=== PATIENT | female | born 1950 | race Caucasian/White ===

== ENCOUNTER 2020-04-14 18:29 | Emergency (ER) | payer MEDICAID, MEDICARE ==
[~2020-04-14] VITALS: Ht 162.6 cm; Wt 57.2 kg
[~2020-04-14 18:29] MED LIST: FURO20TA4 PO; LEVO50TA8 PO; METO-357 PO; RIVA10TA PO
[2020-04-14 18:34] VITALS: BP 141/72
--- NOTE | 2020-04-14 18:39 | NUR ---
AT BEDSIDE FOR EVAL.
--- NOTE | 2020-04-14 18:48 | NUR ---
BOBBIN COIL WINDER AT BEDSIDE FOR XRAY.
[2020-04-14] MEDS ORDERED: LIDOCAINE /MPF 1% VIAL 5 ML VIAL ONE (18:58)
[2020-04-14] MEDS ORDERED: TDAP [DIPH/PERTUSSIS/TET] 0.5 ML VIAL IM ONE ×2 (19:00)
[2020-04-14] MEDS ORDERED: LIDOCAINE 1% INJ 50 ML MDV IJ ONE (19:00)
== END 2020-04-14 19:30 | disposition home or self-care (01) ==
LOC: ER 18:31
DX: S91.021A Laceration with foreign body, right ankle, initial encounter (principal); K21.9 Gastro-esophageal reflux disease without esophagitis; E03.9 Hypothyroidism, unspecified; E78.00 Pure hypercholesterolemia, unspecified; G89.29 Other chronic pain; Z86.73 Personal history of transient ischemic attack (TIA), and cerebral infarction without residual deficits; Z79.899 Other long term (current) drug therapy; W22.8XXA Striking against or struck by other objects, initial encounter; Y93.89 Activity, other specified; Y92.89 Other specified places as the place of occurrence of the external cause; Y99.8 Other external cause status
CPT/HCPCS: 12031; 73610; 99284; A6403; J3490; 90715

== ENCOUNTER 2022-03-25 17:26 | Emergency (ER) | payer SELFPAY ==
[~2022-03-25] VITALS: Ht 157.5 cm; Wt 49.9 kg
[2022-03-25] MEDS ORDERED: METO50TA16 PO (17:35)
[2022-03-25] MEDS ORDERED: PRED20TA PO (17:35)
[2022-03-25] MEDS ORDERED: METF-440 PO (17:35)
--- NOTE | 2022-03-25 17:56 | NUR ---
TO ER BED 2. C/O PALPITATION,BLOOD PRESSURE HAS BEEN HIGH X 7 DAYS. STATED THAT SHE ALSO HAS UPPER EPIGASTRIC PAIN. PT ATTACHED TO MONITOR, NO RESP DISTRESS NOTED. WARM BLANKET PROVIDED FOR COMFORT. AWAITING MD ORDERS.
--- NOTE | 2022-03-25 18:10 | NUR ---
DENNY BYNUM 18G. LABS DRAWN AND SENT.
--- NOTE | 2022-03-25 18:16 | NUR ---
COVID SWAB DONE AND SENT TO LAB
--- NOTE | 2022-03-25 18:18 | NUR ---
ULTRASOND AT BEDSIDE
[2022-03-25] MEDS ORDERED: KETOROLAC TROMETHAMINE 15 MG/ML VIAL ONE (18:27)
[2022-03-25] MEDS ORDERED: ONDANSETRON HCL/PF 4 MG/2 ML VIAL ONE (18:27)
[2022-03-25] MEDS ORDERED: ONDANSETRON HCL/PF 4 MG/2 ML VIAL IVP ONE (18:30)
[2022-03-25] MEDS ORDERED: KETOROLAC TROMETHAMINE INJ 30 MG/ML VIAL IV ONE (18:30)
[2022-03-25] MEDS ORDERED: IV NS 0.9% 1,000 ML BAG IV ONE (18:30)
[2022-03-25 18:56] LABS: ALBUMIN 3.7 g/dL (3.4-5.0); BILIRUBIN,DIRECT 0.3 mg/dL (0.0-0.2); CREATININE 1.1 mg/dL (0.6-1.3); POTASSIUM 3.4 mmol/L (3.5-5.1); TOTAL PROTEIN, SERUM 7.2 g/dL (6.4-8.2)
[2022-03-25] MEDS ORDERED: IV NS 0.9% 250 ML IV ONE (19:27)
[2022-03-25] MEDS ORDERED: IOHEXOL-300 100 ML VIAL IV ONE (19:27)
--- NOTE | 2022-03-25 19:30 | NUR ---
CAME BACK FROM CT DEPT.
--- NOTE | 2022-03-25 19:39 | NUR ---
RECEIVED REPORT FROM AD SERRANO. PATIENT CAME WITH CC OF PALPITATION AND HI BP FOR SEVERAL DAYS. PATIENT HAS PERIPHERAL LINE ON RIGHT AC G18. PATIENT HR 152BPM, SATS 97%, BP 146/103mmHg.
[2022-03-25 19:53] LABS: BASOPHILS % (AUTO) 0.2 % (0.0-2.0); EOSINOPHILS % (AUTO) 0.2 % (0.0-6.0); HEMATOCRIT 42 % (33-45); HEMOGLOBIN 14.1 g/dL (11.5-14.8); LYMPHOCYTES # (AUTO) 1.2 K/uL (0.8-4.8); LYMPHOCYTES % (AUTO) 11.3 % (20.0-44.0); MEAN CORPUSCULAR HGB CONC 34 g/dl (31.0-36.0); MEAN CORPUSCULAR VOLUME 97 fL (82-100); MONOCYTES # (AUTO) 0.4 K/uL (0.1-1.30); MONOCYTES % (AUTO) 3.3 % (2.0-12.0); NEUTROPHILS # (AUTO) 9.4 K/uL (1.8-8.9); PLATELET COUNT (AUTO) 263 K/uL (150-450); RED BLOOD CELL COUNT(AUTO) 4.36 MIL/uL (4.0-5.2)
[2022-03-25] MEDS ORDERED: FURO-144 PO (20:59)
--- NOTE | 2022-03-25 21:25 | NUR ---
IV CANNULA REMOVED
--- NOTE | 2022-03-25 21:34 | NUR ---
Patient discharged to home in stable condition. Written and verbal after care instructions given. Patient verbalizes understanding of instruction.
[2022-03-25 21:35] VITALS: BP 146/103
[2022-04-07] MEDS ORDERED: APIX5TAB PO (08:23)
== END 2022-03-25 21:30 | disposition home or self-care (01) ==
LOC: ER 17:42
DX: R10.13 Epigastric pain (principal); I50.9 Heart failure, unspecified; Z20.822 Contact with and (suspected) exposure to COVID-19; K21.9 Gastro-esophageal reflux disease without esophagitis; Z86.73 Personal history of transient ischemic attack (TIA), and cerebral infarction without residual deficits; E03.9 Hypothyroidism, unspecified; E78.00 Pure hypercholesterolemia, unspecified; E87.6 Hypokalemia; Z79.01 Long term (current) use of anticoagulants; Z79.890 Hormone replacement therapy; Z79.899 Other long term (current) drug therapy
CPT/HCPCS: 99291; 74177; 96374; 76705; 96361; 96375; 87426; 93005; 85025; 80048; 80076; 36415; 84484; 83880; J2405; J7030; J7050; Q9967; J1885; C9803

== ENCOUNTER 2022-03-31 16:55 | Emergency (ER) | payer SELFPAY ==
[~2022-03-31] VITALS: Ht 157.5 cm; Wt 49.9 kg
[~2022-03-31 16:55] MED LIST changes: +FURO-144 PO; +METF-440 PO; -METO-357 PO; +METO50TA16 PO; +PRED20TA PO; -RIVA10TA PO
[2022-03-31 18:52] LABS: CALCIUM, SERUM 9.2 mg/dL (8.5-10.1); CARBON DIOXIDE 37 mmol/L (21-32); CHLORIDE 90 mmol/L (98-107); CREATININE 1.4 mg/dL (0.6-1.3); GLUCOSE 174 mg/dL (74-106); POTASSIUM 3.4 mmol/L (3.5-5.1); SODIUM SERUM 135 mmol/L (136-145); UREA NITROGEN, BLOOD 25 mg/dL (7-18)
[2022-03-31] MEDS ORDERED: DILTIAZEM HCL 50 MG IV IV ONE (19:00)
[2022-03-31 19:05] LABS: THYROID STIMULATING HORMONE 5.872 uIU/mL (0.358-3.74)
[2022-03-31 19:06] LABS: MAGNESIUM 3.3 mg/dL (1.8-2.4)
--- NOTE | 2022-03-31 19:35 | NUR ---
RECEIVED PATIENT AAOX4. ABLE TO MAKE NEEDS KNOWN. CAME WITH CC OF PALPITATION. PATIENT IS ATTACHED TO MONITOR. WITH PERIPHERAL LINE ON RIGHT AC G18. VITALS CHECKED.
[2022-03-31] MEDS ORDERED: DILTIAZEM HCL 50 MG IV ONE (20:01)
--- NOTE | 2022-03-31 20:09 | NUR ---
CARDIZEM IV GIVEN IVP. VITALS BEING MONITORED Q 5MINS.
[2022-03-31 20:18] LABS: BASOPHILS % (AUTO) 0.1 % (0.0-2.0); EOSINOPHILS % (AUTO) 0.2 % (0.0-6.0); HEMATOCRIT 44 % (33-45); HEMOGLOBIN 14.6 g/dL (11.5-14.8); LYMPHOCYTES # (AUTO) 1.5 K/uL (0.8-4.8); MEAN CORPUSCULAR HGB CONC 33 g/dl (31.0-36.0); MEAN CORPUSCULAR VOLUME 96 fL (82-100); MONOCYTES # (AUTO) 0.6 K/uL (0.1-1.30); MONOCYTES % (AUTO) 4.1 % (2.0-12.0); NEUTROPHILS # (AUTO) 11.8 K/uL (1.8-8.9); NEUTROPHILS % (AUTO) 84.6 % (43.0-81.0); PLATELET COUNT (AUTO) 274 K/uL (150-450); RED BLOOD CELL COUNT(AUTO) 4.57 MIL/uL (4.0-5.2)
[2022-03-31] MEDS ORDERED: POTASSIUM CHLORIDE 20 MEQ TAB.PRT.SR PO ONE ×2 (20:30→21:27)
--- NOTE | 2022-03-31 21:02 | NUR ---
Byron martinez in [facility] - 03/31/22 at 2103 by RUSH IV CANNULA G20 INSERTED ON LEFT AC.
[2022-03-31] MEDS ORDERED: APIXABAN 2.5 MG TABLET PO SCH (21:30)
[2022-03-31] MEDS ORDERED: INSULIN REGULAR, HUMAN 100 UNIT/ML 3 ML VIAL SQ PRN (21:30)
[2022-03-31] MEDS ORDERED: APIXABAN 5 MG TABLET PO SCH (21:30)
[2022-03-31] MEDS ORDERED: ONDANSETRON HCL/PF 4 MG/2 ML VIAL IVP PRN (21:30)
[2022-03-31] MEDS ORDERED: ACETAMINOPHEN 325 MG TABLET PO PRN (21:30)
[2022-03-31] MEDS ORDERED: MORPHINE SULFATE INJ 2 MG/ML DISP.SYRIN IV PRN (21:30)
[2022-03-31] MEDS ORDERED: DILTIAZEM HCL 30 MG TABLET PO ONE (21:30)
[2022-03-31] MEDS ORDERED: DEXTROSE 50%-WATER 50 ML DISP.SYRIN IV PRN (21:30)
[2022-03-31] MEDS ORDERED: DILTIAZEM HCL 30 MG TABLET ONE (21:35)
[2022-03-31] MEDS ORDERED: BLOOD SUGAR DIAGNOSTIC 1 EACH STRIP IN SCH (22:00)
--- NOTE | 2022-03-31 22:05 | NUR ---
PATIENT SEEN BY DR NICOLE AT BEDSIDE. PATIENT REFUSED TO BE ADMITTED. SHE WOULD RATHER SEE HER PCP ON MONDAY. RISK AND BENEFIT EXPLAINED TO PATIENT BUT STILL REFUSED TO BE ADMITTED. PATIENT SIGNED AMA.
--- NOTE | 2022-03-31 22:15 | NUR ---
CARDIZEM 30MG PO ORDERED. CLARIFIED WITH DR FLORES WITH PATIENT'S LATEST VS. MD, STILL TO GIVE THE CARDIZEM ORAL.
--- NOTE | 2022-03-31 22:55 | NUR ---
Patient does not wish to proceed with medical care recommended by Dr. COREY CHANDRA. Patient given information related to possible complications, up to and including , which could occur as a result of leaving the hospital at this time. Patient verbalizes understanding of risks involved due to leaving against medical advice. Patient has signed AMA form.
--- NOTE | 2022-03-31 22:56 | NUR ---
IV removed. Catheter intact and site benign. Pressure and 4x4 applied to site. No bleeding noted.
[2022-03-31 23:25] VITALS: BP 119/74
[2022-04-01] MEDS ORDERED: LEVOTHYROXINE SODIUM 50 MCG TABLET PO SCH (07:30)
[2022-04-01] MEDS ORDERED: METOPROLOL TARTRATE 50 MG TABLET PO SCH (09:00)
[2022-04-01] MEDS ORDERED: FUROSEMIDE 40 MG TABLET PO SCH (09:00)
[2022-04-01] MEDS ORDERED: METFORMIN 500 MG TABLET PO SCH (09:00)
[2022-04-01] MEDS ORDERED: predniSONE 20 MG TABLET PO SCH (09:00)
[2022-04-07] MEDS ORDERED: APIX5TAB PO (08:23)
== END 2022-03-31 23:26 | disposition home or self-care (01) ==
LOC: ER 17:01
DX: I48.92 Unspecified atrial flutter (principal); I11.0 Hypertensive heart disease with heart failure; I50.9 Heart failure, unspecified; Z20.822 Contact with and (suspected) exposure to COVID-19; I48.91 Unspecified atrial fibrillation; E03.9 Hypothyroidism, unspecified; Z53.29 Procedure and treatment not carried out because of patient's decision for other reasons; R00.2 Palpitations; K21.9 Gastro-esophageal reflux disease without esophagitis; Z86.73 Personal history of transient ischemic attack (TIA), and cerebral infarction without residual deficits; E87.6 Hypokalemia; E78.00 Pure hypercholesterolemia, unspecified; Z79.890 Hormone replacement therapy; Z79.01 Long term (current) use of anticoagulants; Z79.899 Other long term (current) drug therapy
CPT/HCPCS: 99285; 96374; 71045; 87426; 93005 ×2; 85025; 80048; 87040 ×2; 83735; 36415; 84439; 84443; 84484; 85730; 83880; 84481; J3490; C9803

== ENCOUNTER 2022-04-04 14:28 | Inpatient (IN) | payer MEDICARE ==
[~2022-04-04] VITALS: Ht 157.5 cm; Wt 58.5 kg
[~2022-04-04 14:28] MED LIST changes: -FURO-144 PO
--- NOTE | 2022-04-04 15:36 | NUR ---
blood drawn and sent to lab
[2022-04-04 15:39] LABS: BASOPHILS % (AUTO) 0.4 % (0.0-2.0); EOSINOPHILS % (AUTO) 1.2 % (0.0-6.0); HEMATOCRIT 40 % (33-45); HEMOGLOBIN 13.2 g/dL (11.5-14.8); LYMPHOCYTES % (AUTO) 18.7 % (20.0-44.0); MEAN CORPUSCULAR HGB CONC 33 g/dl (31.0-36.0); MEAN CORPUSCULAR VOLUME 96 fL (82-100); MONOCYTES # (AUTO) 0.7 K/uL (0.1-1.30); MONOCYTES % (AUTO) 6.7 % (2.0-12.0); NEUTROPHILS # (AUTO) 7.9 K/uL (1.8-8.9); PLATELET COUNT (AUTO) 220 K/uL (150-450); RED BLOOD CELL COUNT(AUTO) 4.22 MIL/uL (4.0-5.2); WHITE BLOOD COUNT (AUTO) 10.8 K/uL (4.3-11.0)
--- NOTE | 2022-04-04 15:47 | NUR ---
covid swab collected and sent to lab
--- NOTE | 2022-04-04 15:58 | NUR ---
TECH AT BEDSIDE FOR EKG
[2022-04-04 16:19] LABS: ALANINE AMINOTRANSFERASE 95 U/L (12-78); ALBUMIN 3.5 g/dL (3.4-5.0); ALKALINE PHOSPHATASE 101 U/L (46-116); ASPARTATE AMINOTRANSFERASE 36 U/L (15-37); BILIRUBIN,DIRECT 0.2 mg/dL (0.0-0.2); BILIRUBIN,TOTAL 0.4 mg/dL (0.2-1.0); CALCIUM, SERUM 8.8 mg/dL (8.5-10.1); CARBON DIOXIDE 36 mmol/L (21-32); CHLORIDE 98 mmol/L (98-107); GLUCOSE 109 mg/dL (74-106); POTASSIUM 3.3 mmol/L (3.5-5.1); SODIUM SERUM 139 mmol/L (136-145); TOTAL PROTEIN, SERUM 6.8 g/dL (6.4-8.2)
[2022-04-04] MEDS ORDERED: MELA5TAB PO (16:35)
[2022-04-04] MEDS ORDERED: IBUP-1953 PO (16:35)
[2022-04-04] MEDS ORDERED: SUMA100T PO (16:35)
[2022-04-04 16:37] LABS: UREA NITROGEN, BLOOD 31 mg/dL (7-18)
--- NOTE | 2022-04-04 17:56 | NUR ---
DR. REEDER SPEAKING WITH DR. BRUNNER.
[2022-04-04] MEDS ORDERED: SUMATRIPTAN SUCCINATE 100 MG TABLET PO PRN (18:30)
[2022-04-04] MEDS ORDERED: *INSULIN REGULAR(HUMULIN R)HUM 100 UNIT/ML VIAL SQ PRN (18:30)
[2022-04-04] MEDS ORDERED: Z GUARD REMEDY 4 OZ OINT TP PRN (18:30)
[2022-04-04] MEDS ORDERED: POTASSIUM CHLORIDE 10 MEQ TABLET.SA PO ONE (18:30)
[2022-04-04] MEDS ORDERED: INSULIN REGULAR, HUMAN 100 UNIT/ML 3 ML VIAL SQ PRN (18:30)
[2022-04-04] MEDS ORDERED: ACETAMINOPHEN 325 MG TABLET PO PRN (18:30)
[2022-04-04] MEDS ORDERED: MAG HYDROX/AL HYDROX/SIMETH 30 ML UDC PO PRN (18:30)
[2022-04-04] MEDS ORDERED: ZOLPIDEM TARTRATE 5 MG TABLET PO PRN (18:30)
[2022-04-04] MEDS ORDERED: ONDANSETRON HCL/PF 4 MG/2 ML VIAL IVP PRN (18:30)
[2022-04-04] MEDS ORDERED: IV NS 0.9% 1,000 ML IV PRN (18:30)
[2022-04-04] MEDS ORDERED: MAGNESIUM HYDROXIDE 30 ML UDC PO PRN (18:30)
[2022-04-04] MEDS ORDERED: DEXTROSE 50%-WATER 50 ML DISP.SYRIN IV PRN (18:30)
--- NOTE | 2022-04-04 19:31 | NUR ---
rm 328-2
[2022-04-04] MEDS ORDERED: ADENOSINE 6 MG/2 ML VIAL ONE ×2 (20:07→20:20)
--- NOTE | 2022-04-04 20:41 | NUR ---
BED ASSIGNMENT CHANGED TO 113-1
[2022-04-04] MEDS ORDERED: AMIODARONE 150 MG in IV D5W 100 ML IV ONE (21:00)
[2022-04-04] MEDS ORDERED: AMIODARONE 150 MG/3 ML VIAL IV ONE ×2 (21:00)
[2022-04-04] MEDS ORDERED: AMIODARONE 450 MG in IV D5W 250 ML IV ONE (21:00)
[2022-04-04] MEDS ORDERED: ADENOSINE 6 MG/2 ML VIAL IVP ONE (21:00)
--- NOTE | 2022-04-04 21:03 | NUR ---
CALLED FOR REPORT. NURSE NOT AVAILABLE
[2022-04-04] MEDS: AMIODARONE 450 MG in IV D5W 241 ML IV PRN (21:11)
--- NOTE | 2022-04-04 21:12 | NUR ---
AMIODARONE DRIP INITIATED AT 1MG/MIN FOR FIRST 6HRS PER PROTOCOL.
--- NOTE | 2022-04-04 21:21 | NUR ---
report given to willard
--- NOTE | 2022-04-04 21:35 | NUR ---
RN NOTE 2135 RECEIVED 72 Y/O PT FROM ER TRANSFERRED VIA GURNEY ACCOMPANIED BY ER STAFF, PT IS A/O X4 VERBALLY RESPONSIVE, ON RA TOLERATING WELL, WITH DX OF SYNCOPE, PT AMBULATES WITH ASSISTANCE, ADMISSION CARE RENDERED, BODY CHECKED DONE NOTED WITH L LOWER LEG BRUISES PT REFUSED TO TAKE ANY PICTURE SHE SAID "I DON'T WANT ANYBODY TO KNOW ABOUT THIS, I GOT IT FROM MY WORK". EXPLAINED OUR HOSPITAL POLICIES AND PROTOCOL UPON ADMISSION, PT STILL REFUSED. DENIES SOB AND CHEST PAIN AT THIS TIME, IV ACCESS ON RFA #20G RUNNING AMIODARONE AT 1MG, PT ABLE TO TURN AND REPOSITION, SAFETY MEASURES IN PLACED, BED IN LOWEST AND LOCKED POSITION, CALL LIGHT WITHIN REACH, WILL CONT TO MONITOR.
--- NOTE | 2022-04-04 21:43 | NUR ---
PT TRANSPORTED TO ROOM 113-1 ON CARDIAC PER ACLS. AMIODARONE INFUSING AT 1MG/MIN. HANDOFF TO FRANCESCA AD ARRIETA.
[2022-04-04] MEDS ORDERED: Medication Not On Formulary EA (Melatonin 10 MG) PO SCH (22:00)
[2022-04-04] MEDS ORDERED: POTASSIUM CHLORIDE 20 MEQ TAB.PRT.SR PO ONE (22:00)
[2022-04-04] MEDS: BLOOD SUGAR DIAGNOSTIC 1 EACH STRIP VI SCH (22:15)
[2022-04-05] VITALS: BP 105/86
[2022-04-05] MEDS: AMIODARONE 450 MG in IV D5W 241 ML IV PRN (03:21)
--- NOTE | 2022-04-05 03:21 | NUR ---
RN NOTE AMIODARONE DRIP TITRATED TO 0.5 MG AT THIS TIME, PT TOLERATING WELL. WILL CONT TO MONITOR.
[2022-04-05 04:00] VITALS: BP 112/73
[2022-04-05 06:35] LABS: BASOPHILS # (AUTO) 0.1 K/uL (0.0-0.2); BASOPHILS % (AUTO) 0.8 % (0.0-2.0); EOSINOPHILS % (AUTO) 0.8 % (0.0-6.0); HEMATOCRIT 39 % (33-45); HEMOGLOBIN 12.8 g/dL (11.5-14.8); LYMPHOCYTES # (AUTO) 2.3 K/uL (0.8-4.8); LYMPHOCYTES % (AUTO) 22.8 % (20.0-44.0); MEAN CORPUSCULAR HGB CONC 32 g/dl (31.0-36.0); MEAN CORPUSCULAR VOLUME 96 fL (82-100); MONOCYTES # (AUTO) 0.5 K/uL (0.1-1.30); MONOCYTES % (AUTO) 5.4 % (2.0-12.0); NEUTROPHILS # (AUTO) 7.1 K/uL (1.8-8.9); NEUTROPHILS % (AUTO) 70.2 % (43.0-81.0); PLATELET COUNT (AUTO) 210 K/uL (150-450); RED BLOOD CELL COUNT(AUTO) 4.09 MIL/uL (4.0-5.2); WHITE BLOOD COUNT (AUTO) 10.1 K/uL (4.3-11.0)
--- NOTE | 2022-04-05 06:46 | NUR ---
FRANCESCA RN CLOSING NOTES PATIENT ON BED AWAKE, A/O X 4. ABLE TO MAKE NEEDS KNOWN, ON RA TOLERATING WELL, SATING AT 100%. RESPIRATORY EVEN AND UNLABORED, NO SOB NOTED, AFEBRILE, NO S/S OF DISTRESS NOTED. IV ACCESS AT RAC #20G INTACT AND PATENT RUNNING AMIODARONE DRIP AT 0.5 MG, WITH PUREWICK IN PLACED, ALL DUE MEDS GIVEN, KEPT DRY AND CLEAN, ALL SAFETY PRECAUTION PROVIDED, BED IN LOWEST AND LOCKED POSITION. ALL NEEDS ATTENDED, CALL LIGHT WITHIN REACH. WILL ENDORSE TO AM SHIFT NURSE FOR CONTINUITY OF CARE.
[2022-04-05 07:08] LABS: ALANINE AMINOTRANSFERASE 75 U/L (12-78); ALBUMIN 2.9 g/dL (3.4-5.0); ALKALINE PHOSPHATASE 85 U/L (46-116); ASPARTATE AMINOTRANSFERASE 30 U/L (15-37); BILIRUBIN,TOTAL 0.6 mg/dL (0.2-1.0); CALCIUM, SERUM 8.2 mg/dL (8.5-10.1); CARBON DIOXIDE 35 mmol/L (21-32); CHLORIDE 99 mmol/L (98-107); GLUCOSE 96 mg/dL (74-106); MAGNESIUM 2.1 mg/dL (1.8-2.4); PHOSPHORUS 3.3 mg/dL (2.5-4.9); SODIUM SERUM 138 mmol/L (136-145); TOTAL PROTEIN, SERUM 5.8 g/dL (6.4-8.2); UREA NITROGEN, BLOOD 27 mg/dL (7-18)
[2022-04-05 07:12] LABS: CHOLESTEROL 190 mg/dL (<200); HDL CHOLESTEROL 49 mg/dL (40-60); LDL 112 mg/dL (0-99); TRIGLYCERIDES 196 mg/dL (30-150)
[2022-04-05] MEDS ORDERED: LEVOTHYROXINE SODIUM 50 MCG TABLET PO SCH (07:30)
--- NOTE | 2022-04-05 07:30 | NUR ---
FRANCESCA RN AM NOTES PATIENT IN BED AWAKE, A/O X 4. ABLE TO MAKE NEEDS KNOWN, ON RA TOLERATING WELL, SATING AT 100%. RESPIRATORY UNLABORED, NO SOB NOTED, SINUS RHYTHM ON MONITOR, DENIES CHEST PAIN/DISCOMFORT, IV ACCESS AT RAC #20G INTACT AND PATENT RUNNING AMIODARONE DRIP AT 0.5 MG, [END TIME 2100]. WITH PUREWICK BUT REMOVED Y PATIENT, CARDIAC DIET, BRP/AMBULATORY WITH ASSIST, KEPT DRY AND CLEAN, ALL SAFETY PRECAUTION PROVIDED, BED IN LOWEST AND LOCKED POSITION. ALL NEEDS ATTENDED, CALL LIGHT WITHIN REACH. WILLCOTINUE TO MONITOR.
[2022-04-05 08:00] VITALS: BP 107/71
[2022-04-05] MEDS: POTASSIUM CHLORIDE 20 MEQ TAB.PRT.SR PO SCH ×3 (08:06→09:49)
[2022-04-05] MEDS: BLOOD SUGAR DIAGNOSTIC 1 EACH STRIP VI SCH ×3 (08:07→17:14)
[2022-04-05] MEDS: METOPROLOL TARTRATE 50 MG TABLET PO SCH ×2 (08:14→17:00)
[2022-04-05] MEDS: APIXABAN 5 MG TABLET PO SCH ×2 (08:18→17:25)
--- NOTE | 2022-04-05 09:30 | NUR ---
RN NOTES DUE MEDS GIVEN
[2022-04-05] MEDS ORDERED: HYOSCYAMINE SULFATE 0.125 MG TAB.SUBL SL PRN (11:30)
[2022-04-05] MEDS ORDERED: NA PHOS,M-B/NA PHOS,DI-BA 1 EA ENEMA RC PRN (11:30)
[2022-04-05 12:00] VITALS: BP_SYST 89; BP_SYST 92; BP_DIAS 60; BP_DIAS 72
--- NOTE | 2022-04-05 15:35 | NUR ---
RN NOTES PATIENT GIVEN FLEETS ENEMA, HAD 3 BM.
[2022-04-05 16:00] VITALS: BP 92/71
--- NOTE | 2022-04-05 18:55 | NUR ---
RN NOTES ALL NEEDS MET AT HIS TIME. PATIENT RESTING COMFORTABLY. NOT IN ANY DISTRESS. STABLE. WILL ENDORSE TO NEXT SHIFT FOR ISABELA.
[2022-04-05 20:00] VITALS: BP 113/71
--- NOTE | 2022-04-05 20:15 | NUR ---
RN NOTES, PATIENT STATED THAT SHE WANTS TO LEAVE, INFORMED PATIENT THAT THERE IS NO DISCHARGE ORDER AND IF SHE WANTS TO LEAVE WILL BE AGAINS MEDICAL ADVICE, EDUCATION PROVIDED ABOUT IMPORTANCE TO BE COMPLIANT WITH DR ORDERS AND WAIT TO PROPERLY DISCHARGE HOME, SHE REFUSED SEVERAL TIMES AND SHE STATED THAT SHE IS OK, SHE WILL BE OK AND DOES NOT NEED DR ORDER TO GO HOME, INFORMED KETAN MAGALLON MANAGER LAND AND PER HIM SHE CAN LEAVE AGAINST MEDICAL ADVICE.
--- NOTE | 2022-04-05 20:25 | NUR ---
PATIENT WAS SCOLDED TO THE LOBBY VIA WHEEL CHAIR, ACCOMPANIED BY RESPIRATORY THERAPY MANAGER AND SECURITY, SHE IS GOING TO DRIVE OWN CAR PARKED EMERGENCY PARKING, SHE IS LEAVING AGAINST MEDICAL ADVICE, EDUCATION PROVIDED ABOUT IMPORTANCE TO BE COMPLIANT WITH DR ORDERS AND PROPERLY DISCHARGE HOME, PLAN TO DC TOMORROW, SHE REFUSED SEVERAL TIMES, AND STATED SHE DOES NOT NEED DR ORDER, SHE CAN DISCHARGE HERSELF, THAT THIS IS NOT THE FIRST TIME SHE LEAVES AMA, TELEMONITOR DC, IV LINE DC, AT ROOM AIR NO DISTRESS NOTED UPON DEPART, BUT EXPLAIN RISKS AND BENEFITS, SHE IS S/P AMIODARONE DRIP, DC DURING THE DAY.
--- NOTE | 2022-04-05 20:25 | NUR ---
PATIENT TAKE ALL HER BELONGINGS WITH HER AND SIGN BELONGINGS FORM.
[2022-04-06 09:07] LABS: *SPE A/G RATIO 1.2 (0.7-1.7); *SPE ALPHA-1-GLOBULIN 0.2 g/dL (0.0-0.4); *SPE ALPHA-2-GLOBULIN 0.8 g/dL (0.4-1.0); *SPE M-SPIKE Not Observed g/dL (Not Observed)
[2022-04-07] MEDS ORDERED: APIX5TAB PO (08:23)
== END 2022-04-05 21:05 | disposition left against medical advice (07) | DRG 291 ==
LOC: ER 14:31 → TELE 19:31 → TELE1 20:41 → TELE-TD 22:34
PROVIDERS: ADMIT Nurse Practitioner Acute Care; ATTEND Nurse Practitioner Acute Care
DX: I11.0 Hypertensive heart disease with heart failure (principal); I50.33 Acute on chronic diastolic (congestive) heart failure; I48.92 Unspecified atrial flutter; D68.59 Other primary thrombophilia; I47.1 Supraventricular tachycardia; E11.9 Type 2 diabetes mellitus without complications; I48.91 Unspecified atrial fibrillation; Z86.73 Personal history of transient ischemic attack (TIA), and cerebral infarction without residual deficits; K21.9 Gastro-esophageal reflux disease without esophagitis; G89.29 Other chronic pain; E03.9 Hypothyroidism, unspecified; Z79.84 Long term (current) use of oral hypoglycemic drugs; Z79.899 Other long term (current) drug therapy; R79.89 Other specified abnormal findings of blood chemistry; E87.6 Hypokalemia; E78.00 Pure hypercholesterolemia, unspecified; Z91.81 History of falling; Z53.29 Procedure and treatment not carried out because of patient's decision for other reasons
CPT/HCPCS: 36415; 70450-TC; 71045-TC; 80048-TC; 80053-TC; 80061-TC; 80076-TC; 82962-TC; 83735-TC; 83880; 84100-TC; 84155; 84165; 84484-TC; 85025-TC; 86704; 86803; 87081-TC; 87340; 87806; 93307-TC; C9803; G0378; J0153; J0282; J1815; J7030; J7060

== ENCOUNTER 2024-02-17 15:31 | Inpatient (IN) | payer MEDICARE, OTHER ==
[~2024-02-17] VITALS: Ht 162.6 cm; Wt 59.9 kg
[~2024-02-17 15:31] MED LIST changes: +APIX5TAB PO; -FURO20TA4 PO; +IBUP-1953 PO; +MELA5TAB PO; -PRED20TA PO; +SUMA100T PO
[2024-02-17 16:08] LABS: BASOPHILS % (AUTO) 0.2 % (0.0-2.0); EOSINOPHILS % (AUTO) 0.2 % (0.0-6.0); HEMATOCRIT 34 % (33-45); HEMOGLOBIN 11.4 g/dL (11.5-14.8); LYMPHOCYTES # (AUTO) 0.8 K/uL (0.8-4.8); LYMPHOCYTES % (AUTO) 7.2 % (20.0-44.0); MEAN CORPUSCULAR HEMOGLOBIN 31 PG (26.0-33.0); MEAN CORPUSCULAR HGB CONC 33 g/dl (31.0-36.0); MEAN CORPUSCULAR VOLUME 93 fL (82-100); MONOCYTES # (AUTO) 0.9 K/uL (0.1-1.30); MONOCYTES % (AUTO) 8.1 % (2.0-12.0); NEUTROPHILS # (AUTO) 9.4 K/uL (1.8-8.9); NEUTROPHILS % (AUTO) 84.3 % (43.0-81.0); PLATELET COUNT (AUTO) 404 K/uL (150-450); RED BLOOD CELL COUNT(AUTO) 3.68 MIL/uL (4.0-5.2); RED CELL DISTRIBUTION WIDTH 13.5 % (11.5-15.0); WHITE BLOOD COUNT (AUTO) 11.2 K/uL (4.3-11.0)
[2024-02-17] MEDS: KETAMINE HCL(200MG/20ML) 10 MG/ML VIAL IV ONE (16:22)
[2024-02-17] MEDS: IV NS 0.9% 1,000 ML BAG IV ONE (16:22)
[2024-02-17 16:23] LABS: INR 1.07 (0.91-1.10); PARTIAL THROMBOPLASTIN TIME 30.2 SEC (24.3-34.3); PROTHROMBIN TIME 11.3 SECS (9.2-11.1)
[2024-02-17 16:25] LABS: CREATINE KINASE, TOTAL 637 U/L (26-192)
[2024-02-17 16:27] LABS: ALANINE AMINOTRANSFERASE 25 U/L (12-78); ALKALINE PHOSPHATASE 88 U/L (46-116); ASPARTATE AMINOTRANSFERASE 42 U/L (15-37); BILIRUBIN,DIRECT 0.3 mg/dL (0.0-0.2); BILIRUBIN,TOTAL 0.9 mg/dL (0.2-1.0); CALCIUM, SERUM 9.6 mg/dL (8.5-10.1); CARBON DIOXIDE 18 mmol/L (21-32); CHLORIDE 102 mmol/L (98-107); CREATININE 0.8 mg/dL (0.6-1.3); GLUCOSE 125 mg/dL (74-106); POTASSIUM 3.3 mmol/L (3.5-5.1); SODIUM SERUM 140 mmol/L (136-145); TOTAL PROTEIN, SERUM 7.2 g/dL (6.4-8.2); UREA NITROGEN, BLOOD 19 mg/dL (7-18)
[2024-02-17 16:32] LABS: MAGNESIUM 1.8 mg/dL (1.8-2.4)
[2024-02-17 16:34] LABS: THYROID STIMULATING HORMONE 1.73 uIU/mL (0.358-3.74)
[2024-02-17] MEDS ORDERED: MORPHINE SULFATE INJ 4 MG/ML DISP.SYRIN ONE ×2 (17:29→18:48)
[2024-02-17] MEDS: MORPHINE SULFATE INJ 2 MG/ML DISP.SYRIN IV ONE ×2 (17:33→18:51)
[2024-02-17] MEDS ORDERED: Z GUARD REMEDY 4 OZ OINT TP PRN (21:30)
[2024-02-17] MEDS ORDERED: DEXTROSE 50%-WATER 50 ML DISP.SYRIN IV PRN (21:30)
[2024-02-17] MEDS: MORPHINE SULFATE INJ 2 MG/ML DISP.SYRIN IV PRN (23:00)
[2024-02-17 23:15] VITALS: BP 149/115; TEMP 98.2; O2SAT 97
[2024-02-17] MEDS: BLOOD SUGAR DIAGNOSTIC 1 EACH STRIP IN SCH (23:21)
[2024-02-17] MEDS: POTASSIUM CHLORIDE 20 MEQ POWDER PACKET PO SCH (23:21)
[2024-02-17] MEDS: METOPROLOL TARTRATE 50 MG TABLET PO SCH (23:22)
[2024-02-17] MEDS: IV NS 0.9% 1,000 ML IV PRN (23:40)
[2024-02-18] VITALS: BP 135/84; TEMP 98; O2SAT 97
[2024-02-18 04:00] VITALS: BP 128/77; TEMP 97.7; O2SAT 95
[2024-02-18 07:50] LABS: BASOPHILS % (AUTO) 0.3 % (0.0-2.0); EOSINOPHILS % (AUTO) 0.1 % (0.0-6.0); HEMATOCRIT 33 % (33-45); HEMOGLOBIN 11.1 g/dL (11.5-14.8); LYMPHOCYTES # (AUTO) 0.8 K/uL (0.8-4.8); LYMPHOCYTES % (AUTO) 7.6 % (20.0-44.0); MEAN CORPUSCULAR HEMOGLOBIN 32 PG (26.0-33.0); MEAN CORPUSCULAR HGB CONC 34 g/dl (31.0-36.0); MEAN CORPUSCULAR VOLUME 94 fL (82-100); MONOCYTES # (AUTO) 0.9 K/uL (0.1-1.30); MONOCYTES % (AUTO) 8.4 % (2.0-12.0); NEUTROPHILS # (AUTO) 8.7 K/uL (1.8-8.9); NEUTROPHILS % (AUTO) 83.6 % (43.0-81.0); PLATELET COUNT (AUTO) 368 K/uL (150-450); RED BLOOD CELL COUNT(AUTO) 3.52 MIL/uL (4.0-5.2); RED CELL DISTRIBUTION WIDTH 13.2 % (11.5-15.0); WHITE BLOOD COUNT (AUTO) 10.4 K/uL (4.3-11.0)
[2024-02-18] MEDS: LEVOTHYROXINE SODIUM 50 MCG TABLET PO SCH (07:52)
[2024-02-18 08:00] VITALS: BP 121/89; TEMP 98.8; O2SAT 96
[2024-02-18 08:19] LABS: CALCIUM, SERUM 9.1 mg/dL (8.5-10.1); CARBON DIOXIDE 19 mmol/L (21-32); CHLORIDE 105 mmol/L (98-107); CREATININE 0.7 mg/dL (0.6-1.3); GLUCOSE 124 mg/dL (74-106); MAGNESIUM 1.9 mg/dL (1.8-2.4); PHOSPHORUS 2.6 mg/dL (2.5-4.9); POTASSIUM 3.4 mmol/L (3.5-5.1); SODIUM SERUM 139 mmol/L (136-145); UREA NITROGEN, BLOOD 17 mg/dL (7-18)
[2024-02-18 08:34] LABS: CREATINE KINASE, TOTAL 311 U/L (26-192)
[2024-02-18] MEDS: MAG HYDROX/AL HYDROX/SIMETH 30 ML UDC PO PRN (09:14)
[2024-02-18] MEDS: APIXABAN 5 MG TABLET PO SCH (09:15)
[2024-02-18] MEDS: PANTOPRAZOLE 40 MG VIAL IV SCH (09:15)
[2024-02-18] MEDS: AMIODARONE 150 MG in IV D5W 100 ML IV ONE (09:32)
[2024-02-18] MEDS: AMIODARONE 450 MG in IV D5W 241 ML IV PRN (10:11)
[2024-02-18 12:00] VITALS: BP 110/63; TEMP 98.3; O2SAT 94
[2024-02-18] MEDS: INSULIN REGULAR, HUMAN 100 UNIT/ML 3 ML VIAL SQ PRN (12:14)
[2024-02-18 16:00] VITALS: BP 106/72; TEMP 97.7; O2SAT 95
[2024-02-18 20:00] VITALS: BP 128/83; TEMP 98.1; O2SAT 97
[2024-02-18] MEDS: ONDANSETRON HCL/PF 4 MG/2 ML VIAL IVP PRN (21:28)
[2024-02-19] VITALS: BP 119/74; TEMP 99.5; O2SAT 95
[2024-02-19] MEDS: MORPHINE SULFATE INJ 2 MG/ML DISP.SYRIN IVP ONE (01:14)
[2024-02-19 04:00] VITALS: BP 122/78; TEMP 98.2; O2SAT 97
[2024-02-19 07:24] LABS: BASOPHILS % (AUTO) 0.2 % (0.0-2.0); EOSINOPHILS % (AUTO) 0.3 % (0.0-6.0); HEMATOCRIT 29 % (33-45); HEMOGLOBIN 9.8 g/dL (11.5-14.8); LYMPHOCYTES # (AUTO) 0.9 K/uL (0.8-4.8); LYMPHOCYTES % (AUTO) 8.1 % (20.0-44.0); MEAN CORPUSCULAR HEMOGLOBIN 32 PG (26.0-33.0); MEAN CORPUSCULAR HGB CONC 34 g/dl (31.0-36.0); MEAN CORPUSCULAR VOLUME 93 fL (82-100); MONOCYTES % (AUTO) 8.6 % (2.0-12.0); NEUTROPHILS # (AUTO) 9.4 K/uL (1.8-8.9); NEUTROPHILS % (AUTO) 82.8 % (43.0-81.0); PLATELET COUNT (AUTO) 373 K/uL (150-450); RED BLOOD CELL COUNT(AUTO) 3.08 MIL/uL (4.0-5.2); RED CELL DISTRIBUTION WIDTH 13.6 % (11.5-15.0); WHITE BLOOD COUNT (AUTO) 11.3 K/uL (4.3-11.0)
[2024-02-19 07:28] LABS: CALCIUM, SERUM 8.8 mg/dL (8.5-10.1); CARBON DIOXIDE 20 mmol/L (21-32); CHLORIDE 104 mmol/L (98-107); CREATININE 0.6 mg/dL (0.6-1.3); GLUCOSE 145 mg/dL (74-106); POTASSIUM 3.4 mmol/L (3.5-5.1); SODIUM SERUM 134 mmol/L (136-145); UREA NITROGEN, BLOOD 14 mg/dL (7-18)
[2024-02-19 07:35] LABS: CREATINE KINASE, TOTAL 105 U/L (26-192)
[2024-02-19 08:00] VITALS: BP 118/82; TEMP 98.7; O2SAT 97
[2024-02-19] MEDS: SUMATRIPTAN SUCCINATE 100 MG TABLET PO PRN (08:44)
[2024-02-19] MEDS: POTASSIUM CHLORIDE 20 MEQ TAB.PRT.SR PO ONE (08:51)
[2024-02-19] MEDS: PANTOPRAZOLE 40 MG TABLET.DR PO SCH (08:51)
[2024-02-19] MEDS: HYDROCODONE/APAP 5/325MG TABLET PO PRN (11:31)
[2024-02-19 12:00] VITALS: BP 124/75; TEMP 98.9; O2SAT 97
[2024-02-19] MEDS: AMIODARONE HCL 200 MG TABLET PO SCH (14:50)
[2024-02-19 16:00] VITALS: BP 128/65; TEMP 98.7; O2SAT 97
[2024-02-19] MEDS: GLUCERNA SHAKE 237 ML CAN PO SCH (16:21)
[2024-02-19 20:00] VITALS: BP 125/80; TEMP 98.4; O2SAT 97
[2024-02-20] VITALS: BP 125/80; TEMP 98.4; O2SAT 97
[2024-02-20] MEDS: TEMAZEPAM 7.5 MG CAPSULE PO ONE (00:44)
[2024-02-20 04:00] VITALS: BP 115/90; TEMP 98.1; O2SAT 97
[2024-02-20 07:15] LABS: BASOPHILS % (AUTO) 0.4 % (0.0-2.0); EOSINOPHILS # (AUTO) 0.1 K/uL (0.0-0.7); EOSINOPHILS % (AUTO) 0.7 % (0.0-6.0); HEMATOCRIT 28 % (33-45); HEMOGLOBIN 9.7 g/dL (11.5-14.8); LYMPHOCYTES % (AUTO) 10.6 % (20.0-44.0); MEAN CORPUSCULAR HEMOGLOBIN 32 PG (26.0-33.0); MEAN CORPUSCULAR HGB CONC 34 g/dl (31.0-36.0); MEAN CORPUSCULAR VOLUME 94 fL (82-100); MONOCYTES # (AUTO) 0.8 K/uL (0.1-1.30); MONOCYTES % (AUTO) 7.9 % (2.0-12.0); NEUTROPHILS # (AUTO) 7.7 K/uL (1.8-8.9); NEUTROPHILS % (AUTO) 80.4 % (43.0-81.0); PLATELET COUNT (AUTO) 375 K/uL (150-450); RED BLOOD CELL COUNT(AUTO) 3.03 MIL/uL (4.0-5.2); RED CELL DISTRIBUTION WIDTH 13.7 % (11.5-15.0); WHITE BLOOD COUNT (AUTO) 9.5 K/uL (4.3-11.0)
[2024-02-20 07:41] LABS: CALCIUM, SERUM 8.9 mg/dL (8.5-10.1); CARBON DIOXIDE 17 mmol/L (21-32); CHLORIDE 106 mmol/L (98-107); CREATININE 0.6 mg/dL (0.6-1.3); GLUCOSE 112 mg/dL (74-106); POTASSIUM 3.6 mmol/L (3.5-5.1); SODIUM SERUM 135 mmol/L (136-145); UREA NITROGEN, BLOOD 14 mg/dL (7-18)
[2024-02-20 07:44] LABS: CREATINE KINASE, TOTAL 56 U/L (26-192)
[2024-02-20 08:00] VITALS: BP 117/74; TEMP 97; O2SAT 97
[2024-02-20 12:00] VITALS: BP 123/76; TEMP 97.2; O2SAT 96
[2024-02-20] MEDS: METOPROLOL TARTRATE 50 MG TABLET PO SCH (13:43)
[2024-02-20 16:00] VITALS: BP 102/80; TEMP 98.1; O2SAT 96
[2024-02-20 20:00] VITALS: BP 137/80; TEMP 97; O2SAT 96
[2024-02-21] VITALS (8 sets, daily range): BP systolic 106–136; BP diastolic 73–94; TEMP 97–98.8; O2SAT 96–100
[2024-02-21] MEDS: ALBUTEROL FS 2.5 MG/0.5 ML VIAL.NEB NEB PRN (04:24)
[2024-02-21] MEDS: TEMAZEPAM 7.5 MG CAPSULE PO PRN (05:07)
[2024-02-21 07:33] LABS: BASOPHILS % (AUTO) 0.4 % (0.0-2.0); EOSINOPHILS # (AUTO) 0.1 K/uL (0.0-0.7); EOSINOPHILS % (AUTO) 0.8 % (0.0-6.0); HEMATOCRIT 28 % (33-45); HEMOGLOBIN 9.4 g/dL (11.5-14.8); LYMPHOCYTES % (AUTO) 10.2 % (20.0-44.0); MEAN CORPUSCULAR HEMOGLOBIN 32 PG (26.0-33.0); MEAN CORPUSCULAR HGB CONC 34 g/dl (31.0-36.0); MEAN CORPUSCULAR VOLUME 94 fL (82-100); MONOCYTES # (AUTO) 0.9 K/uL (0.1-1.30); MONOCYTES % (AUTO) 9.1 % (2.0-12.0); NEUTROPHILS # (AUTO) 8.2 K/uL (1.8-8.9); NEUTROPHILS % (AUTO) 79.5 % (43.0-81.0); PLATELET COUNT (AUTO) 387 K/uL (150-450); RED BLOOD CELL COUNT(AUTO) 2.94 MIL/uL (4.0-5.2); RED CELL DISTRIBUTION WIDTH 13.5 % (11.5-15.0); WHITE BLOOD COUNT (AUTO) 10.3 K/uL (4.3-11.0)
[2024-02-21 08:29] LABS: ALANINE AMINOTRANSFERASE 18 U/L (12-78); ALKALINE PHOSPHATASE 79 U/L (46-116); ASPARTATE AMINOTRANSFERASE 21 U/L (15-37); BILIRUBIN,DIRECT 0.1 mg/dL (0.0-0.2); BILIRUBIN,TOTAL 0.3 mg/dL (0.2-1.0); CALCIUM, SERUM 8.7 mg/dL (8.5-10.1); CARBON DIOXIDE 19 mmol/L (21-32); CHLORIDE 103 mmol/L (98-107); CREATININE 0.7 mg/dL (0.6-1.3); GLUCOSE 105 mg/dL (74-106); POTASSIUM 3.7 mmol/L (3.5-5.1); SODIUM SERUM 133 mmol/L (136-145); TOTAL PROTEIN, SERUM 5.6 g/dL (6.4-8.2); UREA NITROGEN, BLOOD 11 mg/dL (7-18)
[2024-02-21] MEDS: POTASSIUM CHLORIDE 20 MEQ TAB.PRT.SR PO SCH (08:34)
[2024-02-21 09:20] LABS: ALBUMIN 1.2 g/dL (3.4-5.0)
[2024-02-21] MEDS ORDERED: clonazePAM 0.5 MG TABLET PO PRN (14:30)
[2024-02-21] MEDS: MAGNESIUM HYDROXIDE 30 ML UDC PO PRN (17:21)
[2024-02-21] MEDS: BISACODYL SUPP (10 MG) 10 MG/SUPP.RECT SUPP.RECT RC ONE (19:50)
[2024-02-21] MEDS: HYDROCODONE/APAP 10/325MG TABLET PO PRN (22:13)
[2024-02-22 04:00] VITALS: BP 138/75; TEMP 96.8; O2SAT 99
[2024-02-22 06:50] LABS: BASOPHILS % (AUTO) 0.5 % (0.0-2.0); EOSINOPHILS # (AUTO) 0.1 K/uL (0.0-0.7); EOSINOPHILS % (AUTO) 1.3 % (0.0-6.0); HEMATOCRIT 28 % (33-45); HEMOGLOBIN 9.6 g/dL (11.5-14.8); LYMPHOCYTES % (AUTO) 12.6 % (20.0-44.0); MEAN CORPUSCULAR HEMOGLOBIN 32 PG (26.0-33.0); MEAN CORPUSCULAR HGB CONC 34 g/dl (31.0-36.0); MEAN CORPUSCULAR VOLUME 94 fL (82-100); MONOCYTES # (AUTO) 0.9 K/uL (0.1-1.30); MONOCYTES % (AUTO) 10.6 % (2.0-12.0); NEUTROPHILS # (AUTO) 6.1 K/uL (1.8-8.9); PLATELET COUNT (AUTO) 409 K/uL (150-450); RED BLOOD CELL COUNT(AUTO) 3.02 MIL/uL (4.0-5.2); RED CELL DISTRIBUTION WIDTH 13.5 % (11.5-15.0); WHITE BLOOD COUNT (AUTO) 8.1 K/uL (4.3-11.0)
[2024-02-22 07:18] LABS: CALCIUM, SERUM 9.3 mg/dL (8.5-10.1); CARBON DIOXIDE 18 mmol/L (21-32); CHLORIDE 106 mmol/L (98-107); CREATININE 0.5 mg/dL (0.6-1.3); GLUCOSE 115 mg/dL (74-106); POTASSIUM 3.5 mmol/L (3.5-5.1); SODIUM SERUM 136 mmol/L (136-145); UREA NITROGEN, BLOOD 11 mg/dL (7-18)
[2024-02-22 08:00] VITALS: BP 113/64; TEMP 97.7; O2SAT 100
[2024-02-22] MEDS ORDERED: HYDR-3980 PO (11:21)
[2024-02-22] MEDS ORDERED: CLON0.5T4 PO (11:21)
[2024-02-22] MEDS ORDERED: APIX5TAB PO (11:21)
[2024-02-22] MEDS ORDERED: METO50TA16 PO (11:21)
[2024-02-22] MEDS ORDERED: ALBU2.5V13 NEB (11:21)
[2024-02-22] MEDS ORDERED: NUT.237L45 PO (11:21)
[2024-02-22] MEDS ORDERED: AMIO200T7 PO (11:21)
[2024-02-22] MEDS ORDERED: POTA20TA83 PO (11:21)
[2024-02-22 16:00] VITALS: BP 104/61; TEMP 98.2; O2SAT 100
[2024-02-23] VITALS: BP 112/70; TEMP 97.7; O2SAT 100
[2024-02-23] MEDS: ACETAMINOPHEN 325 MG TABLET PO PRN (02:00)
[2024-02-23 07:05] LABS: BASOPHILS % (AUTO) 0.4 % (0.0-2.0); EOSINOPHILS # (AUTO) 0.1 K/uL (0.0-0.7); EOSINOPHILS % (AUTO) 0.9 % (0.0-6.0); HEMATOCRIT 26 % (33-45); LYMPHOCYTES # (AUTO) 1.1 K/uL (0.8-4.8); LYMPHOCYTES % (AUTO) 13.7 % (20.0-44.0); MEAN CORPUSCULAR HEMOGLOBIN 32 PG (26.0-33.0); MEAN CORPUSCULAR HGB CONC 34 g/dl (31.0-36.0); MEAN CORPUSCULAR VOLUME 93 fL (82-100); MONOCYTES # (AUTO) 0.9 K/uL (0.1-1.30); MONOCYTES % (AUTO) 10.9 % (2.0-12.0); NEUTROPHILS % (AUTO) 74.1 % (43.0-81.0); PLATELET COUNT (AUTO) 415 K/uL (150-450); RED BLOOD CELL COUNT(AUTO) 2.83 MIL/uL (4.0-5.2); RED CELL DISTRIBUTION WIDTH 13.5 % (11.5-15.0); WHITE BLOOD COUNT (AUTO) 8.1 K/uL (4.3-11.0)
[2024-02-23 07:24] LABS: CALCIUM, SERUM 9.1 mg/dL (8.5-10.1); CARBON DIOXIDE 24 mmol/L (21-32); CHLORIDE 104 mmol/L (98-107); CREATININE 0.5 mg/dL (0.6-1.3); GLUCOSE 105 mg/dL (74-106); POTASSIUM 3.7 mmol/L (3.5-5.1); SODIUM SERUM 136 mmol/L (136-145); UREA NITROGEN, BLOOD 10 mg/dL (7-18)
[2024-02-23 08:00] VITALS: BP 120/76; TEMP 96.5; O2SAT 96
[2024-02-23] MEDS: THERAHONEY GEL 1.5 OZ TUBE TP SCH (11:53)
[2024-02-23 16:00] VITALS: BP 128/96; TEMP 97.1; O2SAT 97
[2024-02-23] MEDS: METOPROLOL TARTRATE 50 MG TABLET PO SCH (17:34)
[2024-02-23 21:30] VITALS: O2SAT 98
[2024-02-24 04:00] VITALS: BP 91/51; TEMP 98.6; O2SAT 100
[2024-02-24 04:14] VITALS: BP 95/51; TEMP 98.6; O2SAT 100
[2024-02-24 07:11] VITALS: BP 75/51; TEMP 96.6; O2SAT 98
[2024-02-24 08:00] VITALS: BP 115/83; TEMP 97.9; O2SAT 100
[2024-02-24 08:41] VITALS: BP 115/83
== END 2024-02-24 12:19 | disposition still patient (30) | DRG 73 ==
LOC: ER 15:40 → MED 20:40 → UNDOADMIN 20:40 → MEDSG1 22:04 → TELE-TD 22:17 → MEDSG1 02-20 10:07 → TELE1 02-20 13:23 → MEDSG1 02-21 20:42
PROVIDERS: ATTEND Nurse Practitioner Acute Care
DX: G90.8 Other disorders of autonomic nervous system (principal); E43 Unspecified severe protein-calorie malnutrition; N17.0 Acute kidney failure with tubular necrosis; I21.A1 Myocardial infarction type 2; I47.10 Supraventricular tachycardia, unspecified; R65.10 Systemic inflammatory response syndrome (SIRS) of non-infectious origin without acute organ dysfunction; E86.0 Dehydration; I48.0 Paroxysmal atrial fibrillation; W19.XXXA Unspecified fall, initial encounter; Y92.9 Unspecified place or not applicable; Z86.73 Personal history of transient ischemic attack (TIA), and cerebral infarction without residual deficits; I25.2 Old myocardial infarction; K21.9 Gastro-esophageal reflux disease without esophagitis; I50.9 Heart failure, unspecified; I11.0 Hypertensive heart disease with heart failure; G89.29 Other chronic pain; E03.9 Hypothyroidism, unspecified; E78.00 Pure hypercholesterolemia, unspecified; Z79.01 Long term (current) use of anticoagulants; Z79.890 Hormone replacement therapy; Z79.899 Other long term (current) drug therapy; S00.03XA Contusion of scalp, initial encounter; F41.9 Anxiety disorder, unspecified; E78.5 Hyperlipidemia, unspecified; E11.9 Type 2 diabetes mellitus without complications; E87.6 Hypokalemia; D64.9 Anemia, unspecified; E88.09 Other disorders of plasma-protein metabolism, not elsewhere classified; Z96.641 Presence of right artificial hip joint; F39 Unspecified mood [affective] disorder; G47.00 Insomnia, unspecified
CPT/HCPCS: 36415; 70450-TC; 71045-TC; 72125-TC; 72192-TC; 73070-TC; 73521; 73560-TC; 80048-TC; 80076-TC; 82550-TC; 82553; 82962-TC; 83735-TC; 83880; 84100-TC; 84439-TC; 84443-TC; 84484-TC; 85025-TC; 85730-TC; 93307-TC; 93880-TC; 94760-TC; 94799-TC; 97110-TC; 97530-TC; A4223; A6253; A6403; G0378; J0282; J1815; J2270; J2405; J2470; J3490; J7030; J7050; J7060

== ENCOUNTER 2024-11-23 16:28 | Emergency (ER) | payer MEDICAID, MEDICARE, OTHER ==
[~2024-11-23] VITALS: Ht 157.5 cm; Wt 47.6 kg
[~2024-11-23 16:28] MED LIST changes: +ALBU2.5V13 NEB; +AMIO200T7 PO; +CLON0.5T4 PO; +HYDR-3980 PO; -MELA5TAB PO; -METF-440 PO; +NUT.237L45 PO; +POTA20TA83 PO
[2024-11-23] MEDS: KETOROLAC TROMETHAMINE 15 MG/ML VIAL IV ONE (17:00)
[2024-11-23] MEDS ORDERED: KETOROLAC TROMETHAMINE 15 MG/ML VIAL ONE (17:03)
[2024-11-23 17:25] LABS: BASOPHILS % (AUTO) 0.6 % (0.0-2.0); EOSINOPHILS # (AUTO) 0.2 K/uL (0.0-0.7); EOSINOPHILS % (AUTO) 2.6 % (0.0-6.0); HEMATOCRIT 34 % (33-45); HEMOGLOBIN 11.3 g/dL (11.5-14.8); LYMPHOCYTES # (AUTO) 1.8 K/uL (0.8-4.8); LYMPHOCYTES % (AUTO) 25.2 % (20.0-44.0); MEAN CORPUSCULAR HEMOGLOBIN 31 PG (26.0-33.0); MEAN CORPUSCULAR HGB CONC 34 g/dl (31.0-36.0); MEAN CORPUSCULAR VOLUME 91 fL (82-100); MONOCYTES # (AUTO) 0.5 K/uL (0.1-1.30); NEUTROPHILS # (AUTO) 4.7 K/uL (1.8-8.9); NEUTROPHILS % (AUTO) 64.6 % (43.0-81.0); PLATELET COUNT (AUTO) 215 K/uL (150-450); RED BLOOD CELL COUNT(AUTO) 3.67 MIL/uL (4.0-5.2); RED CELL DISTRIBUTION WIDTH 14.5 % (11.5-15.0); WHITE BLOOD COUNT (AUTO) 7.3 K/uL (4.3-11.0)
[2024-11-23 17:33] LABS: CALCIUM, SERUM 9.3 mg/dL (8.5-10.1); CARBON DIOXIDE 25 mmol/L (21-32); CHLORIDE 106 mmol/L (98-107); CREATININE 0.7 mg/dL (0.6-1.3); GLUCOSE 91 mg/dL (74-106); POTASSIUM 4.2 mmol/L (3.5-5.1); SODIUM SERUM 140 mmol/L (136-145); UREA NITROGEN, BLOOD 17 mg/dL (7-18)
[2024-11-23 17:44] LABS: ALANINE AMINOTRANSFERASE 20 U/L (12-78); ALBUMIN 3.7 g/dL (3.4-5.0); ALKALINE PHOSPHATASE 145 U/L (46-116); ASPARTATE AMINOTRANSFERASE 23 U/L (15-37); BILIRUBIN,DIRECT 0.1 mg/dL (0.0-0.2); BILIRUBIN,TOTAL 0.2 mg/dL (0.2-1.0); LIPASE 33 U/L (16-77)
[2024-11-23 18:30] LABS: APPEARANCE,URINE CLEAR (CLEAR); BILIRUBIN,URINE NEGATIVE (NEGATIVE); BLOOD, URINE NEGATIVE Ery/uL (NEGATIVE); COLOR,URINE YELLOW (YELLOW); KETONES,URINE TRACE mg/dL (NEGATIVE); LEUKOCYTE ESTERASE ,URINE NEGATIVE (NEGATIVE); NITRITE, URINE POSITIVE (NEGATIVE); PROTEIN,URINE TRACE mg/dl (NEGATIVE); UGLUCOSE NEGATIVE (NEGATIVE); UROBILINOGEN,URINE 0.2 EU/dL (0.2)
[2024-11-23 19:21] LABS: RBC,URINE 0-2 /HPF (0-2)
[2024-11-23 19:22] LABS: ADD URINE CULTURE YES; BACTERIA,URINE Many /HPF (None Seen); SQUAMOUS EPITHELIAL CELL,UR 0-2 /HPF (None Seen)
[2024-11-23] MEDS ORDERED: CIPR-262 PO (19:25)
[2024-11-23] MEDS ORDERED: CIPROFLOXACIN HCL 500 MG TABLET ONE (19:32)
[2024-11-23] MEDS: CIPROFLOXACIN HCL 250 MG TABLET PO ONE (19:36)
[2024-11-23 19:52] VITALS: BP 130/81; TEMP 97.8; O2SAT 99
== END 2024-11-23 19:52 | disposition home or self-care (01) ==
LOC: ER 16:37
DX: N39.0 Urinary tract infection, site not specified (principal); E03.9 Hypothyroidism, unspecified; E11.9 Type 2 diabetes mellitus without complications; E78.00 Pure hypercholesterolemia, unspecified; G89.29 Other chronic pain; I10 Essential (primary) hypertension; I48.91 Unspecified atrial fibrillation; K21.9 Gastro-esophageal reflux disease without esophagitis; Z79.01 Long term (current) use of anticoagulants; Z79.899 Other long term (current) drug therapy; Z86.73 Personal history of transient ischemic attack (TIA), and cerebral infarction without residual deficits; Z60.2 Problems related to living alone
CPT/HCPCS: 99285; 74176; 96374; 93005; 85025; 80048; 87086; 83690; 80076; 81001; 36415; 84484; J1885

== ENCOUNTER 2024-12-26 16:19 | Inpatient (IN) | payer MEDICARE, OTHER ==
[~2024-12-26] VITALS: Ht 154.9 cm; Wt 51.7 kg
[~2024-12-26 16:19] MED LIST changes: +CIPR-262 PO
[2024-12-26] MEDS ORDERED: ONDANSETRON HCL/PF 4 MG/2 ML VIAL ONE (16:57)
[2024-12-26] MEDS ORDERED: MORPHINE SULFATE INJ 4 MG/ML DISP.SYRIN ONE (16:57)
[2024-12-26] MEDS: IV NS 0.9% 1,000 ML BAG IV ONE (17:17)
[2024-12-26 17:18] LABS: BASOPHILS % (AUTO) 0.6 % (0.0-2.0); EOSINOPHILS # (AUTO) 0.2 K/uL (0.0-0.7); EOSINOPHILS % (AUTO) 2.6 % (0.0-6.0); HEMATOCRIT 36 % (33-45); HEMOGLOBIN 12.1 g/dL (11.5-14.8); LYMPHOCYTES # (AUTO) 1.8 K/uL (0.8-4.8); LYMPHOCYTES % (AUTO) 23.6 % (20.0-44.0); MEAN CORPUSCULAR HEMOGLOBIN 31 PG (26.0-33.0); MEAN CORPUSCULAR HGB CONC 34 g/dl (31.0-36.0); MEAN CORPUSCULAR VOLUME 92 fL (82-100); MONOCYTES # (AUTO) 0.5 K/uL (0.1-1.30); NEUTROPHILS # (AUTO) 5.1 K/uL (1.8-8.9); NEUTROPHILS % (AUTO) 66.2 % (43.0-81.0); PLATELET COUNT (AUTO) 229 K/uL (150-450); RED BLOOD CELL COUNT(AUTO) 3.95 MIL/uL (4.0-5.2); RED CELL DISTRIBUTION WIDTH 14.7 % (11.5-15.0); WHITE BLOOD COUNT (AUTO) 7.7 K/uL (4.3-11.0)
[2024-12-26 17:19] LABS: APPEARANCE,URINE CLEAR (CLEAR); BILIRUBIN,URINE NEGATIVE (NEGATIVE); BLOOD, URINE NEGATIVE Ery/uL (NEGATIVE); COLOR,URINE YELLOW (YELLOW); KETONES,URINE NEGATIVE (NEGATIVE); LEUKOCYTE ESTERASE ,URINE TRACE (NEGATIVE); NITRITE, URINE NEGATIVE (NEGATIVE); PH,URINE 5.5 (5.0-8.0); PROTEIN,URINE NEGATIVE (NEGATIVE); UGLUCOSE NEGATIVE (NEGATIVE); UROBILINOGEN,URINE 0.2 EU/dL (0.2)
[2024-12-26] MEDS: ONDANSETRON HCL/PF 4 MG/2 ML VIAL IVP ONE (17:23)
[2024-12-26] MEDS: MORPHINE SULFATE INJ 2 MG/ML DISP.SYRIN IV ONE (17:24)
[2024-12-26 17:39] LABS: BILIRUBIN,DIRECT 0.1 mg/dL (0.0-0.2); BILIRUBIN,TOTAL 0.5 mg/dL (0.2-1.0); CALCIUM, SERUM 9.1 mg/dL (8.5-10.1); CREATININE 0.9 mg/dL (0.6-1.3); TOTAL PROTEIN, SERUM 7.7 g/dL (6.4-8.2)
[2024-12-26 17:44] LABS: POTASSIUM 3.3 mmol/L (3.5-5.1)
[2024-12-26 18:11] LABS: ADD URINE CULTURE YES; BACTERIA,URINE Moderate /HPF (None Seen); RBC,URINE 0-2 /HPF (0-2); SQUAMOUS EPITHELIAL CELL,UR Few /HPF (None Seen)
[2024-12-26 20:00] VITALS: BP 133/70; TEMP 98; O2SAT 98
[2024-12-26] MEDS ORDERED: Z GUARD REMEDY 4 OZ OINT TP PRN (20:30)
[2024-12-26] MEDS ORDERED: MAGNESIUM HYDROXIDE 30 ML UDC PO PRN (20:30)
[2024-12-26] MEDS ORDERED: MORPHINE SULFATE INJ 4 MG/ML DISP.SYRIN IV PRN (20:30)
[2024-12-26] MEDS ORDERED: ACETAMINOPHEN 325 MG TABLET PO PRN (20:30)
[2024-12-26] MEDS ORDERED: MAG HYDROX/AL HYDROX/SIMETH 30 ML UDC PO PRN (20:30)
[2024-12-26] MEDS ORDERED: HYDROCODONE/APAP 5/325MG TABLET PO PRN (20:30)
[2024-12-26] MEDS ORDERED: ONDANSETRON HCL/PF 4 MG/2 ML VIAL IVP PRN (20:30)
[2024-12-26] MEDS ORDERED: LIDOCAINE 5% (PATCH) 1 EA PATCH TP SCH (22:30)
[2024-12-26] MEDS ORDERED: CEFTRIAXONE 1GM BAG (ER ONLY) 0 ML IV ONE (22:34)
[2024-12-26] MEDS: CEFTRIAXONE 1 G in IV D5W 50 ML IV SCH (22:38)
[2024-12-27] MEDS ORDERED: PANTOPRAZOLE 40 MG TABLET.DR PO SCH (07:30)
[2024-12-27] MEDS ORDERED: DOCUSATE SODIUM 100 MG CAPSULE PO SCH (09:00)
== END 2024-12-26 23:00 | disposition left against medical advice (07) | DRG 543 ==
LOC: ER 16:25 → MED 20:33
DX: M48.56XA Collapsed vertebra, not elsewhere classified, lumbar region, initial encounter for fracture (principal); N39.0 Urinary tract infection, site not specified; M48.54XA Collapsed vertebra, not elsewhere classified, thoracic region, initial encounter for fracture; G43.909 Migraine, unspecified, not intractable, without status migrainosus; Z53.29 Procedure and treatment not carried out because of patient's decision for other reasons; K57.30 Diverticulosis of large intestine without perforation or abscess without bleeding; Z87.442 Personal history of urinary calculi; Z79.01 Long term (current) use of anticoagulants; I48.91 Unspecified atrial fibrillation; I10 Essential (primary) hypertension; E11.9 Type 2 diabetes mellitus without complications; E03.9 Hypothyroidism, unspecified; F41.9 Anxiety disorder, unspecified; Z86.73 Personal history of transient ischemic attack (TIA), and cerebral infarction without residual deficits; I25.2 Old myocardial infarction; E87.6 Hypokalemia
CPT/HCPCS: 36415; 80048-TC; 80076-TC; 81001; 83690-TC; 85025-TC; G0378; J0696; J2270; J2405; J7030; J7060

== ENCOUNTER 2025-01-24 15:42 | Emergency (ER) | payer MEDICARE, OTHER ==
[~2025-01-24] VITALS: Ht 160 cm; Wt 50.8 kg
[2025-01-24] MEDS ORDERED: PANTOPRAZOLE 40 MG VIAL ONE (16:26)
[2025-01-24] MEDS ORDERED: KETOROLAC TROMETHAMINE INJ 30 MG/ML VIAL ONE ×2 (16:26→16:28)
[2025-01-24] MEDS: PANTOPRAZOLE 40 MG VIAL IV ONE (17:05)
[2025-01-24] MEDS: KETOROLAC TROMETHAMINE 15 MG/ML VIAL IV ONE (17:06)
[2025-01-24 17:10] LABS: APPEARANCE,URINE CLEAR (CLEAR); BLOOD, URINE NEGATIVE Ery/uL (NEGATIVE); LEUKOCYTE ESTERASE ,URINE 1+ (NEGATIVE); NITRITE, URINE POSITIVE (NEGATIVE); UGLUCOSE NEGATIVE (NEGATIVE)
[2025-01-24 17:22] LABS: PLATELET COUNT (AUTO) 219 K/uL (150-450); RED BLOOD CELL COUNT(AUTO) 3.75 MIL/uL (4.0-5.2); RED CELL DISTRIBUTION WIDTH 13.7 % (11.5-15.0); WHITE BLOOD COUNT (AUTO) 7.5 K/uL (4.3-11.0)
[2025-01-24 17:23] LABS: CALCIUM, SERUM 9.1 mg/dL (8.5-10.1); CREATININE 0.7 mg/dL (0.6-1.3); SODIUM SERUM 142.0 mmol/L (136-145); UREA NITROGEN, BLOOD 20.0 mg/dL (7-18)
[2025-01-24 17:28] LABS: ASPARTATE AMINOTRANSFERASE 20.0 U/L (15-37); TOTAL PROTEIN, SERUM 6.8 g/dL (6.4-8.2)
[2025-01-24 17:38] LABS: ADD URINE CULTURE YES
[2025-01-24] MEDS ORDERED: HYDR-3980 PO (17:49)
[2025-01-24 18:54] VITALS: BP 107/93; TEMP 98.4; O2SAT 99
== END 2025-01-24 18:54 | disposition home or self-care (01) ==
LOC: ER 15:49
DX: M48.56XA Collapsed vertebra, not elsewhere classified, lumbar region, initial encounter for fracture (principal); M48.54XA Collapsed vertebra, not elsewhere classified, thoracic region, initial encounter for fracture; I48.91 Unspecified atrial fibrillation; E78.00 Pure hypercholesterolemia, unspecified; E11.9 Type 2 diabetes mellitus without complications; E03.9 Hypothyroidism, unspecified; G89.29 Other chronic pain; N20.0 Calculus of kidney; Z79.01 Long term (current) use of anticoagulants; Z79.899 Other long term (current) drug therapy; Z86.73 Personal history of transient ischemic attack (TIA), and cerebral infarction without residual deficits; Z60.2 Problems related to living alone
CPT/HCPCS: 99285; 74176; 96374; 96375; 85025; 80048; 87077; 87086; 83690; 80076; 87186; 81001; 36415; J1885 ×2; J2470

== ENCOUNTER 2025-03-19 15:36 | Emergency (ER) | payer MEDICARE, OTHER ==
[~2025-03-19] VITALS: Ht 160 cm; Wt 49.9 kg
[2025-03-19] MEDS ORDERED: PERM60CR4 TP (16:45)
[2025-03-19] MEDS ORDERED: CEFA500C PO (16:45)
[2025-03-19 16:57] VITALS: BP 117/52; TEMP 98; O2SAT 98
== END 2025-03-19 16:58 | disposition home or self-care (01) ==
LOC: ER 15:56
DX: R21 Rash and other nonspecific skin eruption (principal); L29.9 Pruritus, unspecified; E03.9 Hypothyroidism, unspecified; E11.9 Type 2 diabetes mellitus without complications; E78.00 Pure hypercholesterolemia, unspecified; I25.2 Old myocardial infarction; K21.9 Gastro-esophageal reflux disease without esophagitis; Z79.01 Long term (current) use of anticoagulants; Z79.899 Other long term (current) drug therapy; Z86.73 Personal history of transient ischemic attack (TIA), and cerebral infarction without residual deficits; Z87.39 Personal history of other diseases of the musculoskeletal system and connective tissue; Z60.2 Problems related to living alone

== ENCOUNTER 2025-03-25 14:38 | Emergency (ER) | payer OTHER ==
[~2025-03-25] VITALS: Ht 157.5 cm; Wt 49.9 kg
[~2025-03-25 14:38] MED LIST changes: +CEFA500C PO; +PERM60CR4 TP
[2025-03-25 15:16] VITALS: BP 146/82; TEMP 98.4; O2SAT 98
[2025-03-25] MEDS ORDERED: PERM60CR4 TP (17:40)
== END 2025-03-25 18:01 | disposition home or self-care (01) ==
LOC: ER 14:41
DX: R21 Rash and other nonspecific skin eruption (principal); E03.9 Hypothyroidism, unspecified; E11.9 Type 2 diabetes mellitus without complications; E78.00 Pure hypercholesterolemia, unspecified; F17.200 Nicotine dependence, unspecified, uncomplicated; K21.9 Gastro-esophageal reflux disease without esophagitis; Z79.01 Long term (current) use of anticoagulants; Z79.899 Other long term (current) drug therapy; Z86.73 Personal history of transient ischemic attack (TIA), and cerebral infarction without residual deficits; Z86.79 Personal history of other diseases of the circulatory system; Z87.39 Personal history of other diseases of the musculoskeletal system and connective tissue; Z60.2 Problems related to living alone

== ENCOUNTER 2025-06-23 15:06 | Emergency (ER) | payer OTHER ==
[~2025-06-23] VITALS: Ht 157.5 cm; Wt 52.2 kg
[2025-06-23] MEDS ORDERED: ACETAMINOPHEN ES 500 MG TABLET ONE (15:58)
[2025-06-23] MEDS: ACETAMINOPHEN ES 500 MG TABLET PO ONE (16:32)
[2025-06-23] MEDS ORDERED: HYDR-4303 PO (17:17)
[2025-06-23] MEDS ORDERED: ONDA4TAB11 PO (17:17)
[2025-06-23] MEDS ORDERED: ACET-73 PO (17:17)
[2025-06-23 17:48] VITALS: BP 133/80; TEMP 98.2; O2SAT 100
== END 2025-06-23 17:49 | disposition home or self-care (01) ==
LOC: ER 15:25
DX: S06.0X0A Concussion without loss of consciousness, initial encounter (principal); E11.9 Type 2 diabetes mellitus without complications; E03.9 Hypothyroidism, unspecified; E78.00 Pure hypercholesterolemia, unspecified; I48.91 Unspecified atrial fibrillation; Z79.01 Long term (current) use of anticoagulants; Z79.899 Other long term (current) drug therapy; Z86.73 Personal history of transient ischemic attack (TIA), and cerebral infarction without residual deficits; W01.0XXA Fall on same level from slipping, tripping and stumbling without subsequent striking against object, initial encounter; Y93.89 Activity, other specified; Y92.89 Other specified places as the place of occurrence of the external cause; Y99.9 Unspecified external cause status
CPT/HCPCS: 70450-TC; 72125-TC; 73030-TC; 73564-TC